=== PATIENT | male | born 1995 | race Caucasian/White ===

== ENCOUNTER → 2022-09-29 | Outpatient (CLI) | payer OTHER | LOC: M PLAIMG 12:33 | PROVIDERS: ATTEND Physician Assistant | DX: M25.512 Pain in left shoulder (principal); S43.52XA Sprain of left acromioclavicular joint, initial encounter ==

== ENCOUNTER → 2023-02-01 | Outpatient (CLI) | payer OTHER | LOC: M PLAIMG 13:46 | PROVIDERS: ATTEND Nurse Practitioner Family | DX: R06.02 Shortness of breath (principal); M25.551 Pain in right hip; M25.532 Pain in left wrist; M25.542 Pain in joints of left hand ==

== ENCOUNTER 2023-06-10 15:13 | Emergency (ER) | payer OTHER ==
[~2023-06-10] VITALS: Ht 180.3 cm; Wt 108.0 kg
[2023-06-10 15:14] VITALS: BP 165/88; TEMP 98.3; O2SAT 96
== END 2023-06-10 16:18 | disposition home or self-care (01) ==
LOC: M ED 15:13
DX: M25.561 Pain in right knee (principal); Y92.009 Unspecified place in unspecified non-institutional (private) residence as the place of occurrence of the external cause; Y93.72 Activity, wrestling; Y99.9 Unspecified external cause status